=== PATIENT | female | born 1940 | race Caucasian/White ===

== ENCOUNTER 2016-06-03 20:48 | Emergency (ER) | payer MEDICARE, MEDICAID ==
[2016-06-03 21:24] VITALS: BP 103/46
[2016-06-03] MEDS ORDERED: Ondansetron TAB* 4 MG PO ONE (21:33)
[2016-06-03] MEDS ORDERED: Ketorolac INJ* 60 MG/2 ML VIAL IM ONE (21:34)
--- NOTE | 2016-06-03 21:42 | UC ---
HPI Febrile Illness - HPI Summary HPI Summary: ill for 2-3 days with fever, body aches, malaise, fatigue, nausea. MIld diarrhea today. FEver to 102.5. Mild cough and congestion for past few weeks. Unable to eat today. Did get a flu shot. No dysuria or increased frequency. - History of Current Complaint Chief Complaint: UCGeneralIllness Time Seen by Provider: 06/03/16 20:51 Hx Obtained From: Patient Onset/Duration: Started Days Ago - 3 Timing: Constant Initial Severity: Mild Current Severity: Mild Aggravating Factors: Nothing Alleviating Factors: Nothing Associated Signs and Symptoms: Chills, Cough, Diarrhea - mild today, Headache, Joint Pain, Myalgia, Nausea, Weakness - Risk Factors Pseudomonas Risk Factors: Negative Serious Bacterial Infection Risk Factors: Negative - Allergy/Home Medications Allergies/Adverse Reactions: Allergies Allergy/AdvReac Type Severity Reaction Status Date / Time Tetracycline Allergy Unknown Verified 08/25/14 08:16 Reaction Details PMH/Surg Hx/FS Hx/Imm Hx Previously Healthy: Yes Endocrine/Hematology History: Denies: Hx Diabetes Cardiovascular History: Reports: Hx Angina, Hx Hypercholesterolemia, Hx Hypertension, Hx Myocardial Infarction, Other Cardiovascular Problems/Disorders - stents Denies: Hx Pacemaker/ICD, Hx Valvular Heart Disease Respiratory History: Denies: Hx Asthma, Hx Chronic Obstructive Pulmonary Disease (COPD) Sensory History: Reports: Hx Contacts or Glasses Denies: Hx Hearing Aid Opthamlomology History: Reports: Hx Contacts or Glasses Psychiatric History: Denies: Hx Panic Disorder - Cancer History Hx Chemotherapy: No Hx Radiation Therapy: No - Surgical History Surgery Procedure, Year, and Place: partial hysterectomy; cardiac stent; appendectomy, gallbladder - Immunization History Date of Influenza Vaccine: Feb 2016 Infectious Disease History: Yes Infectious Disease History: Reports: Hx Shingles Denies: Traveled Outside the [place] in Last 30 Days - Social History Alcohol Use: None Hx Substance Use: No Substance Use Type: Reports: None Hx Tobacco Use: No Smoking Status (MU): Never Smoked Tobacco Review of Systems Constitutional: Fever, Chills, Fatigue Skin: Negative Eyes: Negative ENT: Nasal Discharge Respiratory: Cough - dry Cardiovascular: Negative Gastrointestinal: Abdominal Pain - crampy pain last night, none today, Diarrhea - mild, Other - nausea Genitourinary: Negative Motor: Negative Neurovascular: Negative Musculoskeletal: Myalgia Neurological: Weakness Psychological: Negative All Other Systems Reviewed And Are Negative: Yes Physical Exam Triage Information Reviewed: Yes Appearance: No Pain Distress, Well-Nourished, Pain Distress - lying on her side on the stretcher, speaking in a weak voice. She did walk in unassisted without difficulty. Vital Signs: Initial Vital Signs Temp 100.2 F 06/03/16 21:15 Pulse 80 06/03/16 21:15 Resp 23 06/03/16 21:15 BP 103/46 06/03/16 21:15 Pulse Ox 95 06/03/16 21:15 Vital Signs Reviewed: Yes Eye Exam: Normal Eyes: Positive: Conjunctiva Clear ENT Exam: Normal Neck exam: Normal Neck: Positive: Supple Respiratory Exam: Normal Respiratory: Positive: Lungs clear, Normal breath sounds, No respiratory distress, No accessory muscle use Cardiovascular Exam: Normal Abdominal Exam: Normal Abdomen Description: Positive: Nontender, No Organomegaly, Soft. Negative: Distended, Guarding Musculoskeletal Exam: Normal Neurological Exam: Normal Neurological: Positive: Alert, Muscle Tone Normal Psychological Exam: Normal Skin Exam: Normal Diagnostics - Laboratory Diagnostic Studies Completed/Ordered: influenza neg. CXR: neg Course/Dx - Diagnoses Clinic Provider Diagnoses: gastroenteritis Discharge - Discharge Plan Condition: Stable Disposition: HOME Prescriptions: Loperamide CAP* [Imodium CAP*] 2 mg PO Q4H PRN #10 cap PRN Reason: Diarrhea Ondansetron [Zofran Odt] 4 mg PO TID PRN #7 tab PRN Reason: Nausea Patient Education Materials: Gastroenteritis (ED)
[2016-06-03] MEDS ORDERED: Ondansetron ODT TAB* 4 MG ONE (21:43)
--- NOTE | 2016-06-03 22:14 | RAD ---
INDICATION: Fever, chills, body aches. Abdominal pain, nausea. COMPARISON: August 11, 2015 TECHNIQUE: Dual energy PA and routine lateral views of the chest were obtained. REPORT: Elevated lung volumes. Mild prominence of the interstitial markings. Negative for pulmonary infiltrate, focal pulmonary lesion, pleural effusion, pneumothorax. Cardiomegaly. Unremarkable central pulmonary vasculature and mediastinal contours. Negative for free air beneath the diaphragm. Thoracic degenerative spondylosis. IMPRESSION: Stigmata of probable chronic obstructive pulmonary disease.
== END 2016-06-03 22:21 | disposition home or self-care (01) ==
LOC: UCCORT 20:48
DX: K52.9 Noninfective gastroenteritis and colitis, unspecified (principal); Z88.1 Allergy status to other antibiotic agents
CPT/HCPCS: 71020; 87502; 96372; 99212; A9270-GY; G0463; J1885

== ENCOUNTER 2017-07-02 11:10 | Emergency (ER) | payer MEDICARE, MEDICAID ==
--- NOTE | 2017-07-02 12:51 | RAD ---
HISTORY: Right elbow pain COMPARISONS: None VIEWS: 4, Frontal, lateral, and oblique views of the right elbow FINDINGS: BONE DENSITY: Normal. BONES: There is no displaced fracture. 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 ALIGNMENT: There is no dislocation. SOFT TISSUES: Unremarkable. OTHER FINDINGS: None. IMPRESSION: OSTEOARTHRITIS. NO ACUTE OSSEOUS INJURY. IF SYMPTOMS PERSIST, RECOMMEND REPEAT IMAGING.
--- NOTE | 2017-07-02 12:52 | UC ---
Elbow Pain - HPI Summary HPI Summary: ONSET OF RIGHT ELBOW PAIN ABOUT A WEEK AGO. NO ACUTE TRAUMA OR DISCRETE INJURY SHE CAN REMEMBER. HURTS WHEN SHE MOVES THE ARM IN CERTAIN WAYS. - History of Current Complaint Chief Complaint: UCUpperExtremity Stated Complaint: ARM PAIN Time Seen by Provider: 07/02/17 12:45 Hx Obtained From: Patient Onset/Duration: Weeks - 1 WEEK Severity Initially: Moderate Severity Currently: Moderate Pain Intensity: 0 Pain Scale Used: 0-10 Numeric Location Of Pain: Is Discrete @ - RIGHT ELBOW Aggravating Factor(s): Movement, Twisting Alleviating Factor(s): Rest Associated Signs And Symptoms: Positive: Negative - Allergies/Home Medications Allergies/Adverse Reactions: Allergies Allergy/AdvReac Type Severity Reaction Status Date / Time tetracycline Allergy Unknown Verified 07/02/17 12:02 Reaction Details PMH/Surg Hx/FS Hx/Imm Hx Cardiovascular History: Cardiac Disease, Hypertension - Surgical History Surgical History: Yes Surgery Procedure, Year, and Place: partial hysterectomy; cardiac stent; appendectomy, gallbladder - Family History Known Family History: Positive: Hypertension - Social History Alcohol Use: None Substance Use Type: None Smoking Status (MU): Never Smoked Tobacco - Immunization History Most Recent Influenza Vaccination: [id number] Most Recent Tetanus Shot: unk Most Recent Pneumonia Vaccination: about 8 years ago Review of Systems Constitutional: Negative Skin: Negative Respiratory: Negative Cardiovascular: Negative Gastrointestinal: Negative Musculoskeletal: Arthralgia All Other Systems Reviewed And Are Negative: Yes Physical Exam Triage Information Reviewed: Yes Appearance: Well-Appearing, No Pain Distress, Well-Nourished Vital Signs: Initial Vital Signs Temp 97.3 F 07/02/17 12:04 Pulse 66 07/02/17 12:04 Resp 18 07/02/17 12:04 BP 136/77 07/02/17 12:04 Pulse Ox 96 07/02/17 12:04 Vital Signs Reviewed: Yes Eyes: Positive: Conjunctiva Clear ENT: Positive: Hearing grossly normal Neck: Positive: Supple Respiratory: Positive: No respiratory distress, No accessory muscle use Cardiovascular: Positive: Pulses Normal Abdomen Description: Positive: Soft Musculoskeletal: Positive: ROM Intact, No Edema, Other: - TTP RIGHT ELBOW LATERAL EPICONDYLE Neurological: Positive: Alert Psychological: Positive: Age Appropriate Behavior Skin: Negative: rashes Diagnostics - Radiology RIGHT ELBOW XRAY Xray Interpretation: No Acute Changes - OSTEOARTHRITIS. NO ACUTE OSSEOUS INJURY Radiology Interpretation Completed By: Radiologist Elbow Pain Course/Dx - Differential Dx/Diagnosis Provider Diagnoses: RIGHT LATERAL EPICONDYLITIS Discharge - Discharge Plan Condition: Stable Disposition: HOME Patient Education Materials: Tennis Elbow (ED) Referrals: Beulah Turner MD [Medical Doctor] - If Needed Meera Mcginnis MD [Medical Doctor] - If Needed Additional Instructions: OSTEOARTHRITIS ON XRAY BUT NO FRACTURE OR DISLOCATION. SYMPTOMS AND EXAM CONSISTENT WITH TENNIS ELBOW. TRY USING A COUNTERFORCE BRACE. THIS IS AVAILABLE AT MOST PHARMACIES. REST THE ARM AND TAKE NSAIDS SUCH IBUPROFEN NEEDED FOR DISCOMFORT. IF YOUR SYMPTOMS DO NOT IMPROVE WITH CONSERVATIVE MGMT YOU MAY BENEFIT FROM ORTHO EVALUATION.
[2017-07-02 13:27] VITALS: BP 137/76
== END 2017-07-02 13:27 | disposition home or self-care (01) ==
LOC: UCEAST 11:10
DX: M77.11 Lateral epicondylitis, right elbow (principal); M19.021 Primary osteoarthritis, right elbow; I11.9 Hypertensive heart disease without heart failure; Z95.5 Presence of coronary angioplasty implant and graft; Z90.711 Acquired absence of uterus with remaining cervical stump; Z90.49 Acquired absence of other specified parts of digestive tract
CPT/HCPCS: 99211; G0463

== ENCOUNTER 2018-02-15 11:16 | Emergency (ER) | payer MEDICARE, MEDICAID ==
[2018-02-15 11:46] VITALS: BP 146/85
--- NOTE | 2018-02-15 11:57 | UC ---
Abdominal Pain Female HPI - HPI Summary HPI Summary: 77yo accompanied by grand daughter with severe abdominal pain for the past 3 days,; she states she has been unable to sleep, exhausted. Dry heaving since yesterday. Last meal/drink was yesterday night. States she had a "normal" BM this morning, brown and formed, denies blood or mucus in it, she states she urinated this morning as well. - History of Current Complaint Chief Complaint: UCAbdominalPain Stated Complaint: ABD PAIN NAUSEA Time Seen by Provider: 02/15/18 11:42 Hx Obtained From: Patient Hx Last Menstrual Period: post ?: No Onset/Duration: Sudden Onset, Lasting Days Severity Initially: Moderate Severity Currently: Severe Pain Intensity: 8 Location: Diffuse Radiates: No Character: Unable to describe Aggravating Factor(s): Nothing Alleviating Factor(s): Nothing Associated Signs and Symptoms: Positive: Nausea - Risk Factors Ectopic Risk Factor: Negative Ovarian Torsion Risk Factor: Negative Allergies/Adverse Reactions: Allergies Allergy/AdvReac Type Severity Reaction Status Date / Time tetracycline Allergy Unknown Verified 02/15/18 11:46 Reaction Details PMH/Surg Hx/FS Hx/Imm Hx Endocrine History: Dyslipidemia Cardiovascular History: Cardiac Disease, Hypertension - Surgical History Surgical History: Yes Surgery Procedure, Year, and Place: partial hysterectomy; cardiac stent; appendectomy, gallbladder - Family History Known Family History: Positive: Hypertension - Social History Alcohol Use: None Substance Use Type: None Smoking Status (MU): Never Smoked Tobacco - Immunization History Most Recent Influenza Vaccination: [id number] Most Recent Tetanus Shot: unk Most Recent Pneumonia Vaccination: about 8 years ago Review of Systems Constitutional: Fatigue Gastrointestinal: Abdominal Pain, Nausea All Other Systems Reviewed And Are Negative: Yes Physical Exam - Summary Physical Exam Summary: Abdomen is soft, no hepatosplenomegaly, mild rebound on LLQ Triage Information Reviewed: Yes Appearance: Pain Distress, Obese Vital Signs: Initial Vital Signs Temp 97.2 F 02/15/18 11:40 Pulse 73 02/15/18 11:40 Resp 18 02/15/18 11:40 BP 146/85 02/15/18 11:40 Pulse Ox 96 02/15/18 11:40 Vital Signs Reviewed: Yes Eyes: Positive: Conjunctiva Clear ENT: Positive: Hearing grossly normal, Pharynx normal - mucous membranes dry Neck: Positive: Supple, Nontender Respiratory: Positive: Chest non-tender, Lungs clear, Normal breath sounds, No respiratory distress Cardiovascular: Positive: RRR, No Murmur, Pulses Normal, Brisk Capillary Refill Abdomen Description: Positive: No Organomegaly, Soft, Other: - mild rebound on LLQ Bowel Sounds: Positive: Present Musculoskeletal: Positive: Strength Intact, ROM Intact, No Edema Neurological: Positive: Alert, Muscle Tone Normal Skin: Positive: rashes - erythematous papular rash on central face Abd Pain Female Course/Dx - Course Course Of Treatment: Patient with severe diffuse abdominal pain present and worsening for the past 3 days. She has nausea and dry heaving, last meal/drink was yesterday night. Patient was started with IVF and transfer [place] [facility] [place] for evaluation and treatment of acute abdominal pain. - Differential Dx/Diagnosis Provider Diagnoses: acute abdominal pain Discharge - Sign-Out/Discharge Documenting (check all that apply): Patient Departure All imaging exams completed and their final reports reviewed: No Studies - Discharge Plan Condition: Guarded Disposition: TRANS HIGHER LVL OF CARE FAC Referrals: Beulah Turner MD [Primary Care Provider] - - Billing Disposition and Condition Condition: GUARDED Disposition: Trans Higher Lvl of Care Fac
[2018-02-15] MEDS ORDERED: NS 0.9% 1000 ML* 1,000 ML IV SCH (12:00)
== END 2018-02-15 12:15 | disposition short-term general hospital (02) ==
LOC: UCEAST 11:16
DX: R10.0 Acute abdomen (principal); R11.0 Nausea; Z88.1 Allergy status to other antibiotic agents
CPT/HCPCS: 96360; 99213; G0463

== ENCOUNTER 2018-02-15 12:45 | Emergency (ER) | payer MEDICARE, MEDICAID ==
[2018-02-15 14:11] LABS: ABS Basophils 0 10^3/ul (0-0.2); ABS Eosinophils 0.1 10^3/ul (0-0.6); ABS Lymphocytes 1.1 10^3/ul (1.0-4.8); ABS Monocytes 0.5 10^3/ul (0-0.8); ABS Neutrophils 5.1 10^3/ul (1.5-7.7); ABS Nucleated RBC 0 10^3/ul; Hematocrit 44 % (35-47); Hemoglobin 14.1 g/dl (12.0-16.0); Lymphocyte % 16.7 % (25-47); Mean Corpuscular HGB Conc 32 g/dl (31-36); Mean Corpuscular Hemoglobin 28 pg (27-31); Mean Corpuscular Volume 86 fL (80-97); Nucleated Red Blood Cells % 0; Platelet Count 267 10^3/ul (150-450); Red Blood Count 5.05 10^6/ul (4.00-5.40); Red Cell Distribution Width 15 % (10.5-15); White Blood Count 6.8 10^3/ul (3.5-10.8)
[2018-02-15 14:24] LABS: EGFR Non-African American 100.5 (>60)
--- NOTE | 2018-02-15 14:24 | RAD ---
HISTORY: abd pain COMPARISONS: None VIEWS: Frontal views of the abdomen. FINDINGS: BOWEL: There is a nonobstructive bowel gas pattern. There is large amount stool noted within the distal colon. CALCULI: There are no abnormal calculi. BONES AND SOFT TISSUES: Degenerative changes are noted of the spine and hips. OTHER FINDINGS: The lung bases are clear. There is no subphrenic gas. IMPRESSION: NONOBSTRUCTIVE BOWEL GAS PATTERN.
[2018-02-15 14:32] LABS: Urine Appearance Cloudy; Urine Blood Negative (Negative); Urine Color Yellow; Urine Ketones Negative (Negative); Urine Protein Negative (Negative); Urine Red Blood Cell Absent (Absent); Urine Urobilinogen Negative (Negative); Urine White Blood Cell 1+(6-10/hpf) (Absent)
[2018-02-15] MEDS ORDERED: cefTRIAXone(*) 1 GM in NS 0.9% 50 ML* 50 ML IVPB ONE (14:50)
--- NOTE | 2018-02-15 14:52 | ED ---
Abdominal Pain/Female - HPI Summary HPI Summary: The pt is a 77 y.o female presenting to the [facility] with a chief complaint of abd pain. Prior to initial examination of the lab reports, the pt shows minor signs of UTI, however the pt is unaware of this condition. She denies burning urination, but describes the urine as odorous. Her most recent bowel movement was this morning and she states she did not eat cheese or other dairy products. PMHx does not include diverticulitis (pt denies this PMHx). She also denies sore throat, rashes, fevers, chest pain, SOB, back pain, diarrhea, vomiting, headache, blurry vision, and double vision. She reports decreased appetite, nausea, and chills. The patient rates the pain 7/10 in severity. Symptoms aggravated by nothing. Symptoms alleviated by nothing. - History of Current Complaint Chief Complaint: EDAbdPain Stated Complaint: ABD PAIN FROM CC Hx Obtained From: Patient Hx Last Menstrual Period: post Onset/Duration: Gradual Onset, Still Present Timing: Constant Severity Initially: Severe Severity Currently: Severe Pain Intensity: 7 Pain Scale Used: 0-10 Numeric Location: Diffuse Aggravating Factor(s): Nothing Alleviating Factor(s): Nothing Associated Signs and Symptoms: Positive: Decreased Appetite, Nausea, Other: - She also denies headache, blurry vision, and double vision. She reports chills.. Negative: Fever, Chest Pain, Urinary Symptoms, Vomiting, Diarrhea Allergies/Adverse Reactions: Allergies Allergy/AdvReac Type Severity Reaction Status Date / Time tetracycline Allergy Unknown Verified 02/15/18 11:46 Reaction Details PMH/Surg Hx/FS Hx/Imm Hx Endocrine/Hematology History: Denies: Hx Diabetes Cardiovascular History: Reports: Hx Angina, Hx Hypercholesterolemia, Hx Hypertension, Hx Myocardial Infarction, Other Cardiovascular Problems/Disorders - stents Denies: Hx Pacemaker/ICD, Hx Valvular Heart Disease Respiratory History: Denies: Hx Asthma, Hx Chronic Obstructive Pulmonary Disease (COPD) GI History: Denies: Hx Diverticulosis Sensory History: Reports: Hx Contacts or Glasses Denies: Hx Hearing Aid Opthamlomology History: Reports: Hx Contacts or Glasses Psychiatric History: Denies: Hx Panic Disorder - Cancer History Hx Chemotherapy: No Hx Radiation Therapy: No - Surgical History Surgery Procedure, Year, and Place: partial hysterectomy; cardiac stent; appendectomy, gallbladder - Immunization History Date of Influenza Vaccine: Feb 2016 Infectious Disease History: No Infectious Disease History: Reports: Hx Shingles Denies: Traveled Outside the [place] in Last 30 Days - Family History Known Family History: Positive: Hypertension Family History: Reviewed and noncontributory - Social History Alcohol Use: None Hx Substance Use: No Substance Use Type: Reports: None Hx Tobacco Use: No Smoking Status (MU): Never Smoked Tobacco Review of Systems Positive: Chills. Negative: Fever Eyes: Other - Negative double vision Negative: Blurred Vision Negative: Sore Throat Negative: Chest Pain Negative: Shortness Of Breath Gastrointestinal: Other - Decreased appetite Positive: Abdominal Pain, Nausea, Other - Normal bowel movements. Negative: Vomiting, Diarrhea Positive: no symptoms reported. Negative: burning Musculoskeletal: Other - Negative back pain Negative: Rash Negative: Headache Psychological: Normal All Other Systems Reviewed And Are Negative: No Physical Exam - Summary Physical Exam Summary: Appearance: Alert, conversive, nontoxic appearing, tired Skin: Warm, dry, no mottling, no rashes, no contusions HEENT: EOMI, PERRL, dry mucous membranes Neck: No masses on the neck, supple Respiratory: Clear to auscultation, breath sounds present, no rales, no rhonchi , no wheezes Cardiovascular: RRR, pulses are symmetrical in both lower and upper extremities Abdomen: Soft, non-tender Bowel Sounds: Present Musculoskeletal: No CVA tenderness, no obvious deformity, moving all extremities in a grossly normal manner Neurological: A&Ox3, CN II-XII Intact, moving all extremities symmetrically Psychiatric: Normal affect and mood Triage Information Reviewed: Yes Vital Signs On Initial Exam: Initial Vitals Temp Pulse Resp BP Pulse Ox 98.5 F 69 18 162/89 95 02/15/18 12:51 02/15/18 12:51 02/15/18 12:51 02/15/18 12:51 02/15/18 12:51 Vital Signs Reviewed: Yes Diagnostics - Vital Signs Vital Signs Temp Pulse Resp BP Pulse Ox 02/15/18 14:00 70 91 02/15/18 13:52 72 149/97 94 02/15/18 13:22 68 151/101 95 02/15/18 13:00 70 95 02/15/18 12:51 98.5 F 73 18 162/89 94 - Laboratory Lab Results: Lab Results 02/15/18 02/15/18 02/15/18 Range/Units 13:56 13:56 13:56 WBC 6.8 (3.5-10.8) 10^3/ul RBC 5.05 (4.00-5.40) 10^6/ul Hgb 14.1 (12.0-16.0) g/dl Hct 44 (35-47) % MCV 86 (80-97) fL MCH 28 (27-31) pg MCHC 32 (31-36) g/dl RDW 15 (10.5-15) % Plt Count 267 (150-450) 10^3/ul MPV 8.0 (7.4-10.4) um3 Neut % (Auto) 74.1 (38-83) % Lymph % (Auto) 16.7 L (25-47) % [place] % (Auto) 7.7 H (0-7) % Eos % (Auto) 1.0 (0-6) % Baso % (Auto) 0.5 (0-2) % Absolute Neuts (auto) 5.1 (1.5-7.7) 10^3/ul Absolute Lymphs (auto) 1.1 (1.0-4.8) 10^3/ul Absolute Monos (auto) 0.5 (0-0.8) 10^3/ul Absolute Eos (auto) 0.1 (0-0.6) 10^3/ul Absolute Basos (auto) 0 (0-0.2) 10^3/ul Absolute Nucleated RBC 0 10^3/ul Nucleated RBC % 0 Sodium 137 (135-145) mmol/L Potassium 4.4 (3.5-5.0) mmol/L Chloride 106 (101-111) mmol/L Carbon Dioxide 26 (22-32) mmol/L Anion Gap 5 (2-11) mmol/L BUN 14 (6-24) mg/dL Creatinine 0.58 (0.51-0.95) mg/dL Est GFR ( Amer) 121.7 (>60) Est GFR (Non-Af Amer) 100.5 (>60) BUN/Creatinine Ratio 24.1 H (8-20) Glucose 109 H (70-100) mg/dL Lactic Acid 1.2 (0.5-2.0) mmol/L Calcium 8.8 (8.6-10.3) mg/dL Total Bilirubin 0.90 (0.2-1.0) mg/dL AST 17 (13-39) U/L ALT 17 (7-52) U/L Alkaline Phosphatase 55 (34-104) U/L Total Protein 7.4 (6.4-8.9) g/dL Albumin 3.9 (3.2-5.2) g/dL Globulin 3.5 (2-4) g/dL Albumin/Globulin Ratio 1.1 (1-3) Lipase 11 (11.0-82.0) U/L Urine Color Urine Appearance Urine pH (5-9) Ur Specific [place] (1.010-1.030) Urine Protein (Negative) Urine Ketones (Negative) Urine Blood (Negative) Urine Nitrate (Negative) Urine Bilirubin (Negative) Urine Urobilinogen (Negative) Ur Leukocyte Esterase (Negative) Urine WBC (Auto) (Absent) Urine RBC (Auto) (Absent) Ur Squamous Epith Cells (Absent) Urine Bacteria (Absent) Urine Glucose (Negative) 02/15/18 Range/Units 14:19 WBC (3.5-10.8) 10^3/ul RBC (4.00-5.40) 10^6/ul Hgb (12.0-16.0) g/dl Hct (35-47) % MCV (80-97) fL MCH (27-31) pg MCHC (31-36) g/dl RDW (10.5-15) % Plt Count (150-450) 10^3/ul MPV (7.4-10.4) um3 Neut % (Auto) (38-83) % Lymph % (Auto) (25-47) % [place] % (Auto) (0-7) % Eos % (Auto) (0-6) % Baso % (Auto) (0-2) % Absolute Neuts (auto) (1.5-7.7) 10^3/ul Absolute Lymphs (auto) (1.0-4.8) 10^3/ul Absolute Monos (auto) (0-0.8) 10^3/ul Absolute Eos (auto) (0-0.6) 10^3/ul Absolute Basos (auto) (0-0.2) 10^3/ul Absolute Nucleated RBC 10^3/ul Nucleated RBC % Sodium (135-145) mmol/L Potassium (3.5-5.0) mmol/L Chloride (101-111) mmol/L Carbon Dioxide (22-32) mmol/L Anion Gap (2-11) mmol/L BUN (6-24) mg/dL Creatinine (0.51-0.95) mg/dL Est GFR ( Amer) (>60) Est GFR (Non-Af Amer) (>60) BUN/Creatinine Ratio (8-20) Glucose (70-100) mg/dL Lactic Acid (0.5-2.0) mmol/L Calcium (8.6-10.3) mg/dL Total Bilirubin (0.2-1.0) mg/dL AST (13-39) U/L ALT (7-52) U/L Alkaline Phosphatase (34-104) U/L Total Protein (6.4-8.9) g/dL Albumin (3.2-5.2) g/dL Globulin (2-4) g/dL Albumin/Globulin Ratio (1-3) Lipase (11.0-82.0) U/L Urine Color Yellow Urine Appearance Cloudy Urine pH 7.0 (5-9) Ur Specific [place] 1.010 (1.010-1.030) Urine Protein Negative (Negative) Urine Ketones Negative (Negative) Urine Blood Negative (Negative) Urine Nitrate Negative (Negative) Urine Bilirubin Negative (Negative) Urine Urobilinogen Negative (Negative) Ur Leukocyte Esterase Trace A (Negative) Urine WBC (Auto) 1+(6-10/hpf) A (Absent) Urine RBC (Auto) Absent (Absent) Ur Squamous Epith Cells Present A (Absent) Urine Bacteria Absent (Absent) Urine Glucose Negative (Negative) Result Diagrams: 02/15/18 13:56 02/15/18 13:56 Lab Statement: Any lab studies that have been ordered have been reviewed, and results considered in the medical decision making process. - Radiology Abdomen X-ray Radiology Interpretation Completed By: Radiologist - ED physician has reviewed this radiology report. Abdomen X-ray reveals NONOBSTRUCTIVE BOWEL GAS PATTERN as per radiologist. Abdominal Pain Fem Course/Dx - Course Course Of Treatment: The pt is a 77 y.o female with a chief complaint of abd pain that is diffuse. She [facility]. Upon initial examination we believe the belly is benign and pt is nontoxic, WBC is normal, lactic acid is also normal. We do not feel this is an acute medical emergency and we recommend following up with the PCP as soon as possible for treatment for mild UTI. The dx will be abd pain and UTI. The pt will be discharged home. - Diagnoses Provider Diagnoses: Abdominal pain, UTI (urinary tract infection) Discharge - Sign-Out/Discharge Documenting (check all that apply): Patient Departure - Discharge Home - Discharge Plan Condition: Stable Disposition: HOME Referrals: Beulah Turner MD [Primary Care Provider] - - Attestation Statements Document Initiated by Scribe: Yes Documenting Scribe: Gee Pabon Provider For Whom Scribe is Documenting (Include Credential): Dr. Sharmila Altamirano Scribe Attestation: Gee Barrientos, scribed for Dr. Sharmila Altamirano on 02/15/18 at 1614.
[2018-02-15 16:31] VITALS: BP 146/90
--- NOTE | 2018-02-17 12:59 | ED ---
Progress - Progress Note Progress Note: patient's final urine culture reveals greater than 100,000 Escherichia coli. Patient was started on Keflex to which organism is sensitive. No change in treatment at this time. Course/Dx - Course Course Of Treatment: The pt is a 77 y.o female with a chief complaint of abd pain that is diffuse. [facility] Upon initial examination we believe the belly is benign and pt is nontoxic, WBC is normal, lactic acid is also normal. We do not feel this is an acute medical emergency and we recommend following up with the PCP as soon as possible for treatment for mild UTI. The dx will be abd pain and UTI. The pt will be discharged home. - Diagnoses Provider Diagnoses: Abdominal pain, UTI (urinary tract infection) Discharge - Sign-Out/Discharge Documenting (check all that apply): Post-Discharge Follow Up - Discharge Plan Condition: Stable Disposition: HOME Prescriptions: Cephalexin CAP* [Keflex CAP*] 500 mg PO TID #21 cap Patient Education Materials: Urinary Tract Infection in Women (ED), Acute Abdominal Pain (ED) Referrals: Beulah Turner MD [Primary Care Provider] - Additional Instructions: Follow up with your primary care physician in 2-3 days. return if worse or any new symptoms. It is important to take the antibiotic as instructed. eat a well balanced diet with high fiber for good bowel health. - Billing Disposition and Condition Condition: STABLE Disposition: Home
== END 2018-02-15 16:30 | disposition home or self-care (01) ==
LOC: ED 12:45
DX: R10.9 Unspecified abdominal pain (principal); N39.0 Urinary tract infection, site not specified; R11.0 Nausea; R10.0 Acute abdomen; Z88.1 Allergy status to other antibiotic agents
CPT/HCPCS: 36415; 74018; 80053; 81003; 81015; 83605; 83690; 85025; 87077; 87086; 87186; 96374; 99283; J0696

== ENCOUNTER 2018-03-25 17:40 | Emergency (ER) | payer MEDICARE, MEDICAID ==
[2018-03-25 18:49] VITALS: BP 108/56
[2018-03-25] MEDS ORDERED: Acetaminophen ADULT LIQ* 650 MG/20.3 ML UDC PO ONE (18:55)
--- NOTE | 2018-03-25 18:55 | UC ---
UC General HPI - HPI Summary HPI Summary: pt c/o 2 month hx of cough and chest congestion with worsening. now has some SOB. 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 family had to assist pt into building due to her weakness. - History of Current Complaint Stated Complaint: COUGH/FEVER Time Seen by Provider: 03/25/18 18:45 Hx Obtained From: Patient Hx Last Menstrual Period: post Onset/Duration: Gradual Onset Timing: Constant Associated Signs & Symptoms: Positive: Cough, Fever, SOB, Weakness. Negative: Abdominal Pain, Chest Pain, Nausea, Vomiting - Allergy/Home Medications Allergies/Adverse Reactions: Allergies Allergy/AdvReac Type Severity Reaction Status Date / Time tetracycline Allergy Unknown Verified 03/25/18 18:49 Reaction Details PMH/Surg Hx/FS Hx/Imm Hx Endocrine History: Dyslipidemia Cardiovascular History: Hypertension - Surgical History Surgical History: Yes Surgery Procedure, Year, and Place: partial hysterectomy; cardiac stent; appendectomy, gallbladder - Family History Known Family History: Positive: Hypertension Family History: Reviewed and noncontributory - Social History Lives: With Family Alcohol Use: None Substance Use Type: None Smoking Status (MU): Never Smoked Tobacco - Immunization History Most Recent Influenza Vaccination: [id number] Most Recent Tetanus Shot: unk Most Recent Pneumonia Vaccination: about 8 years ago Vaccination Up to Date: Yes Review of Systems Constitutional: Fever, Chills, Fatigue Respiratory: Shortness Of Breath, Cough Gastrointestinal: Diarrhea Motor: Weakness Musculoskeletal: Myalgia Is Patient Immunocompromised?: No All Other Systems Reviewed And Are Negative: Yes Physical Exam Triage Information Reviewed: Yes Appearance: Ill-Appearing Vital Signs Reviewed: Yes Eyes: Positive: Conjunctiva Clear ENT: Positive: Nasal congestion, Nasal drainage - clear, Other - lips and mouth dry Neck: Positive: Supple, Nontender, No Lymphadenopathy Respiratory: Positive: Decreased breath sounds, Other: - crackles/wheezes bases Cardiovascular: Positive: No Murmur, Tachycardia Abdomen Description: Positive: Nontender, No Organomegaly, Soft. Negative: Distended, Guarding Bowel Sounds: Positive: Present Musculoskeletal: Positive: ROM Intact Neurological: Positive: Alert Psychological: Positive: Age Appropriate Behavior Skin Exam: Other - Flushed and warm. Course/Dx - Course Course Of Treatment: O2, IV fluids and tylenol. concern for sepsis. pt/family agree to ER transfer. they also agree to EMS transfer to [facility]. [facility] ER called. report given to Ирина Mitchell BACTERIOLOGY TECHNICIAN. - Differential Dx - Multi-Symptom Provider Diagnoses: weakness, fever, dyspnea, possible sepsis Discharge - Sign-Out/Discharge Documenting (check all that apply): Patient Departure All imaging exams completed and their final reports reviewed: No Studies - Discharge Plan Condition: Stable Disposition: TRANS HIGHER LVL OF CARE FAC Referrals: Beulah Turner MD [Primary Care Provider] - - Billing Disposition and Condition Condition: STABLE Disposition: Trans Higher Lvl of Care Fac
[2018-03-25] MEDS ORDERED: NS 0.9% 1000 ML* 1,000 ML IV ONE (18:56)
== END 2018-03-25 19:20 | disposition short-term general hospital (02) ==
LOC: UCCORT 17:40
DX: R06.00 Dyspnea, unspecified (principal); R50.9 Fever, unspecified; R53.83 Other fatigue; I10 Essential (primary) hypertension; Z88.1 Allergy status to other antibiotic agents
CPT/HCPCS: 99213; A9270-GY; G0463

== ENCOUNTER 2019-07-12 17:48 | Emergency (ER) | payer MEDICARE, MEDICAID ==
[2019-07-12 18:07] VITALS: BP 116/62
--- NOTE | 2019-07-12 18:13 | UC ---
Respiratory Complaint HPI - HPI Summary HPI Summary: Pt is an 79 yo female presents to with granddaughter. Pt with 3 days progressive cough, fatigue, weakness, decrease po, nausea - no vomiting, rash no diarrhea. no abdominal pain no cp. Pt states cough causes sob, not productive "won't come up" Pt with similar sx 1 year ago and was in the ICU and hospitalized x 5 weeks. Pt has taken some OTC meds - none in several hours. 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 reviewed this visit - History of Current Complaint Chief Complaint: UCGeneralIllness Stated Complaint: COUGH/CONGESTION/FATIGUE Time Seen by Provider: 07/12/19 18:12 Hx Obtained From: Patient Hx Last Menstrual Period: post ?: No Onset/Duration: Gradual Onset, Lasting Days Pain Intensity: 0 - Allergies/Home Medications Allergies/Adverse Reactions: Allergies Allergy/AdvReac Type Severity Reaction Status Date / Time tetracycline Allergy Unknown Verified 07/12/19 18:08 Reaction Details Home Medications: Home Medications amLODIPine TAB* [Norvasc 5 mg TAB*] 5 mg PO DAILY 06/09/12 [History Confirmed ] Aspirin 81 mg CHEW TAB* 81 mg PO DAILY 08/24/14 [History Confirmed 07/12/19] Metoprolol Succinate XL TAB* [Toprol XL TAB*] 25 mg PO DAILY 08/24/14 [History Confirmed 07/12/19] Rosuvastatin (NF) [Crestor (NF)] 20 mg PO DAILY 08/11/15 [History Confirmed ] Spironolactone TAB* [Aldactone TAB 25 MG*] 25 mg PO DAILY 08/11/15 [History Confirmed 07/12/19] Apixaban* [Eliquis*] 5 mg PO BID 07/12/19 [History Confirmed 07/12/19] Digoxin [Lanoxin] 125 mcg PO DAILY 07/12/19 [History Confirmed 07/12/19] Furosemide [Lasix] 20 mg PO SEE INSTRUCTIONS 07/12/19 [History Confirmed ] PMH/Surg Hx/FS Hx/Imm Hx Previously Healthy: No Endocrine History: Dyslipidemia Cardiovascular History: Hypertension Respiratory History: Pneumonia - Surgical History Surgical History: Yes Surgery Procedure, Year, and Place: partial hysterectomy; cardiac stent; appendectomy, gallbladder - Family History Known Family History: Positive: Hypertension, Respiratory Disease Family History: Reviewed and noncontributory - Social History Occupation: Retired Lives: With Family Alcohol Use: None Substance Use Type: None Smoking Status (MU): Never Smoked Tobacco - Immunization History Most Recent Influenza Vaccination: [id number] Most Recent Tetanus Shot: unk Most Recent Pneumonia Vaccination: about 8 years ago Vaccination Up to Date: Yes Review of Systems All Other Systems Reviewed And Are Negative: Yes Constitutional: Positive: Fever, Fatigue Skin: Positive: Negative ENT: Positive: Sinus Congestion Respiratory: Positive: Cough. Negative: Shortness Of Breath Cardiovascular: Positive: Negative Gastrointestinal: Positive: Nausea Physical Exam - Summary Physical Exam Summary: Vital Signs Reviewed: Yes A+Ox3,tired appearing, appropriate Eyes: Conjunctiva Clear, TRIPP. 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 Skin: Positive: no rash, no ecchymosis Triage Information Reviewed: Yes Vital Signs: Initial Vital Signs Temp 100.3 F 07/12/19 18:04 Pulse 72 07/12/19 18:04 Resp 24 07/12/19 18:04 BP 116/62 07/12/19 18:04 Pulse Ox 95 07/12/19 18:04 Respiratory Course/Dx - Course Course Of Treatment: Pt presents with progressive fatigye cough, weakness, decreased po x 3 days Pt with history of prolonged hospitalization for pna Vitals reviewed - low grade temp pt appears tired, cough dry mm abd soft influenza neg d.w pt and daughter -recommend ED for further eval pt and daughter in agreement - will go to [facility] spoke to charge in ED - aware pt coming - aware concerns for prolonged wait will see upon arrival school note given to granddaughter - Differential Dx/Diagnosis Provider Diagnosis: Cough, Fever Discharge ED - Sign-Out/Discharge Documenting (check all that apply): Patient Departure All imaging exams completed and their final reports reviewed: No Studies - Discharge Plan Condition: Stable Disposition: HOME-RECOMMEND TO ED Referrals: Beulah Turner MD [Primary Care Provider] - Additional Instructions: The doctor that evaluated you today thinks that you need additional testing that can be completed the emergency department. It is recommended that you go directly to emergency department for further evaluation. This evaluation may include blood work or imaging. This testing will be directed and decided by the provider that evaluate you at the emergency department. If pain becomes worse, you feel lightheaded, you have uncontrolled vomiting, or you have any other concerns while you are being driven to emergency department as recommended to pullover and contact 911. - Billing Disposition and Condition Condition: STABLE Disposition: Home-Recommend to ED
[2019-07-12] MEDS ORDERED: Acetaminophen TAB* 325 MG PO ONE (18:14)
[2019-07-12 18:26] LABS: Influenza A Molecular Negative (Negative); Influenza B Molecular Negative (Negative)
== END 2019-07-12 18:40 | disposition home health service (06) ==
LOC: UCCORT 17:48
DX: R05 Cough (principal); R50.9 Fever, unspecified; R09.81 Nasal congestion; R53.83 Other fatigue; R53.1 Weakness; R11.0 Nausea; E78.5 Hyperlipidemia, unspecified; I10 Essential (primary) hypertension; Z88.1 Allergy status to other antibiotic agents; Z79.899 Other long term (current) drug therapy; Z79.82 Long term (current) use of aspirin
CPT/HCPCS: 99212; A9270-GY; G0463